=== PATIENT | female | born 1970 | race Caucasian/White ===

== ENCOUNTER 2023-05-14 15:51 | Emergency (ER) | payer OTHER ==
[~2023-05-14] VITALS: Ht 162.6 cm; Wt 109.0 kg
[2023-05-14 16:03] VITALS: BP 168/87; PULSE 93; TEMP 97.8; O2SAT 98
[2023-05-14] MEDS ORDERED: methylPREDNISolone sod succ 125mg/2ml vial IM ONE (17:40)
[2023-05-14] MEDS ORDERED: ketorolac trometh inj. 60 MG/2 ML VIAL IM ONE (17:40)
[2023-05-14] MEDS ORDERED: NAPR-56 PO (17:41)
[2023-05-14] MEDS ORDERED: METH4TAB81 PO (17:42)
[2023-05-14 18:02] VITALS: RESP 18
== END 2023-05-14 18:03 | disposition home or self-care (01) ==
LOC: ER 15:52
DX: S83.8X1A Sprain of other specified parts of right knee, initial encounter (principal); X58.XXXA Exposure to other specified factors, initial encounter; Y93.89 Activity, other specified; Y92.89 Other specified places as the place of occurrence of the external cause; Y99.8 Other external cause status
CPT/HCPCS: 73564; 96372; 99284; J1885; J2930

== ENCOUNTER 2023-09-04 00:17 | Emergency (ER) | payer MEDICAID, OTHER ==
[~2023-09-04] VITALS: Ht 162.6 cm; Wt 98.0 kg
[~2023-09-04 00:17] MED LIST: METH4TAB81 PO
[2023-09-04] MEDS ORDERED: triamcinolone acetonide 40mg/ml inj IM ONE (02:40)
[2023-09-04] MEDS ORDERED: ketorolac trometh inj. 60 MG/2 ML VIAL IM ONE (02:40)
[2023-09-04] MEDS ORDERED: HYDROcodone/acetaminophen 5mg/325mg tablet PO ONE (02:40)
[2023-09-04] MEDS ORDERED: ondansetron 4mg rapidly disintigrating tab PO ONE (02:40)
[2023-09-04] MEDS ORDERED: HYDR-3965 PO (02:42)
[2023-09-04 03:14] VITALS: BP 14/80; PULSE 85; RESP 16; TEMP 98; O2SAT 98
== END 2023-09-04 03:18 | disposition home or self-care (01) ==
LOC: ER 00:17
DX: M10.9 Gout, unspecified (principal); I10 Essential (primary) hypertension; Z88.5 Allergy status to narcotic agent; Z79.899 Other long term (current) drug therapy
CPT/HCPCS: 96372; 99284; J1885; J3301